=== PATIENT | male | born 1990 | race African-American/Black ===

== ENCOUNTER → 2019-07-09 | Emergency (ER) | payer SELFPAY ==
[~2019-07-09] VITALS: Ht 172.7 cm; Wt 68.0 kg
[~2019-07-09] MED LIST: IBU800 MG PO; Ketorolac 30mg Inj IM ONE; Methocarbamol 750mg tab ORAL ONE; NORCO 5-325 TA1 EAC1 ORAL
[2019-07-09 12:50] VITALS: BP 111/71
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
[2019-07-09 15:22] VITALS: BP 101/62
== END | disposition home or self-care (01) ==
LOC: EMR 13:15
DX: S32.502A Unspecified fracture of left pubis, initial encounter for closed fracture (principal); S32.049A Unspecified fracture of fourth lumbar vertebra, initial encounter for closed fracture; J93.9 Pneumothorax, unspecified; V43.62XA Car passenger injured in collision with other type car in traffic accident, initial encounter; Y92.410 Unspecified street and highway as the place of occurrence of the external cause; R10.9 Unspecified abdominal pain; R07.9 Chest pain, unspecified
CPT/HCPCS: 71250; 74176; 96372; 99284; J1885